=== PATIENT | male | born 1995 | race African-American/Black ===

== ENCOUNTER 2016-04-05 20:51 | Emergency (ER) | payer OTHER ==
[~2016-04-05] VITALS: Ht 182.9 cm; Wt 80.0 kg
[2016-04-05 20:52] VITALS: BP 124/72; TEMP 98.1; O2SAT 99
[2016-04-05 20:57] VITALS: BP 124/72; PULSE 84; RESP 16; TEMP 98.1; O2SAT 99
--- NOTE | 2016-04-05 22:08 | PD ---
HPI Chief Complaint: Injury Time Seen by Provider: 22:03 Travel History International Travel<30 days: No Contact w/Intl Traveler<30days: No Traveled to known affect area: No History of Present Illness HPI 20-year-old black male presents emergency Department with complains of right knee pain. He states those playing basketball on his right knee gave out. He' s had a history of right knee pain after having a partial right ACL tear. He states that he had surgery several years ago and has been doing well since then. He periodically does get pain and some weakness but did not have any injury until today. He states the pain is mild to moderate. Worse with bending his leg and raising it. Feels better with elevation and resting. No other injuries. No numbness or tingling. PFSH Past Medical History Narrative Medical Right ACL tear Tetanus Vaccination: < 5 Years Past Surgical History Narrative Surgical Right ACL repair. Social History Alcohol Use: No Tobacco Use: No Substance Use: No Allergies-Medications (Allergen,Severity, Reaction): Coded Allergies: No Known Allergies (Unverified , 04/05/16) Reported Meds & Prescriptions Reported Meds & Active Scripts Active Diclofenac Sodium DR (Diclofenac Sodium) 75 Mg Tabdr 75 Mg PO BID Review of Systems Except as stated in HPI: all other systems reviewed are Neg Musculoskeletal: Positive: Arthralgias, Limited ROM, Pain, No: Myalgias, Weakness, Cramping, Edema Physical Exam Narrative GENERAL: This is a well-nourished, well-developed patient, in no apparent distress. SKIN: No rashes, ecchymoses or lesions. Warm and dry. HEAD: Atraumatic. Normocephalic. EYES: PERRL, EOMI, no discharge or injection. No scleral icterus. EARS: Clear NOSE: Nasal turbinates appear normal. THROAT: Mucosa pink and moist. Airway patent. NECK: Trachea midline. supple, moves head freely. LUNGS: Clear to auscultation. CV: Regular in rhythm. ABDOMEN: Soft nontender. EXT: No clubbing cyanosis or edema. Examination the right lower extremity reveals no obvious joint effusion. There is no medial lateral collateral ligament pain or instability. He has full extension but has flexion only to 90 . No anterior posterior draw. He does complain some mild discomfort with meniscal testing. No pain in the hip, ankle or foot. He relates within a mildly antalgic gait. Data Data Last Documented VS Vital Signs Date Time Temp Pulse Resp B/P Pulse Ox O2 Delivery O2 Flow Rate FiO2 04/05/16 20:57 98.1 84 16 124/72 99 Room Air Orders Knee, Ltd (1 Or 2vws) (04/05/16 22:02) Ice/Cold Pack (04/05/16 22:02) Crutches (04/05/16 22:02) Naproxen (Naprosyn) (04/05/16 22:15) Splint Or Brace Apply/Monitor (04/05/16 22:08) MDM Medical Decision Making Medical Screen Exam Complete: Yes Emergency Medical Condition: Yes Medical Record Reviewed: Yes Interpretation(s) Right knee negative for acute bony injury. Evidence of prior reconstruction Differential Diagnosis MDM: High Differential diagnoses: Fracture, sprain, strain, dislocation, contusion, neurovascular injury Narrative Course X-ray of the right knee is negative for bony injury. Patient's given Naprosyn 500 mg by mouth, ice pack, crutches. This is right knee sprain Diagnosis Primary Impression: Right knee sprain Patient Instructions: General Instructions Departure Forms: School Release, Please excuse from school until (free text option): No PE times one week. Tests/Procedures Additional Instructions: Rest. Elevation. Ice packs for the next 3 days. Moe wrap and crutches. No weight-bearing and then progress to weight-bearing as tolerated. Medications as directed Follow-up with an orthopedist or your doctor in one week. Return to the ER if any problems Med/Other Pt SpecificInfo: Prescription(s) given Scripts Diclofenac Sodium DR 75 Mg Tabdr75 Mg PO BID #20 TAB Prov:Donna Patel MD 04/05/16 Disposition: 01 DISCHARGE HOME Condition: Stable Janes Cohen Apr 05, 2016 22:08
[2016-04-05] MEDS ORDERED: DICL75TA PO (22:09)
[2016-04-05] MEDS ORDERED: NAPROXEN 500 MG TAB PO ONE (22:15)
--- NOTE | 2016-04-05 23:09 | RADRPT ---
EXAM DATE/TIME: 04/05/2016 22:37 [facility] COMPARISON: No previous studies available for comparison. INDICATIONS : Injury to knee while playing basketball MEDICAL HISTORY : Torn ACL in summer SURGICAL HISTORY : Repaired torn ACL in summer ENCOUNTER: Initial ACUITY: 1 day PAIN SCORE: 5/10 LOCATION: Right Knee FINDINGS: Two view examination of the right knee demonstrates no evidence of fracture or dislocation. Bony min eralization is normal. The suprapatellar soft tissues have a normal configuration. Patient has had p revious anterior cruciate ligament reconstruction. No perceptible joint effusion. CONCLUSION: No acute abnormality demonstrated of the right knee. Previous ACL reconstruction. Jose Antonio Tyson MD on April 05, 2016 at 23:06 Board Certified Radiologist. This report was verified electronically.
== END 2016-04-05 23:18 | disposition home or self-care (01) ==
LOC: NEPB 20:51
DX: S83.91XA Sprain of unspecified site of right knee, initial encounter (principal); X58.XXXA Exposure to other specified factors, initial encounter; Y93.67 Activity, basketball
CPT/HCPCS: 73560; 99283; E0113